=== PATIENT | male | born 1955 | race Caucasian/White ===

== ENCOUNTER 2018-11-28 13:29 | Outpatient (CLI) | payer OTHER ==
[~2018-11-28] VITALS: Ht 182.9 cm; Wt 81.6 kg
[2018-11-28 14:00] VITALS: BP 99/52
--- NOTE | 2018-11-28 21:00 | Consultation ---
DATE OF CONSULTATION: 11/28/2018 GASTROENTEROLOGY CONSULTATION CONSULTING PHYSICIAN: Gilbert Cesar M.D. CHIEF COMPLAINT: Rectal bleeding. HISTORY OF PRESENT ILLNESS: This is a very pleasant 63-year-old male with past medical history of CVA, history of brain tumor status post surgery, history of seizures, who had presented with complaint of two months of rectal bleeding and GERD. PAST SURGICAL HISTORY: Brain surgery. MEDICATIONS: Please see medication reconciliation list. FAMILY HISTORY: No family history of GI malignancies. SOCIAL HISTORY: The patient does not have history of tobacco, alcohol, or IV drug abuse. ALLERGIES: No known drug allergies. REVIEW OF SYSTEMS: Limited. PHYSICAL EXAMINATION: VITAL SIGNS: Temperature 97, blood pressure is 99/52, pulse , respirations 20. HEENT: Normocephalic and atraumatic. Sclerae anicteric. NECK: Supple. No evidence of obvious lymphadenopathy. CARDIOVASCULAR: Regular rate and rhythm. Plus S1 and S2. No obvious murmur. LUNGS: Clear to auscultation bilaterally. ABDOMEN: Positive bowel sounds. Soft and nontender. No rebound. No guarding. No peritoneal sign. EXTREMITIES: No cyanosis, no clubbing, no edema. ASSESSMENT AND PLAN: This is a 63-year-old male with rectal bleeding. No prior history of endoscopy nor colonoscopy. Also, the mentions that the patient has a lot of GERD. Plan to obtain authorization for EGD and colonoscopy. Procedure was explained to the patient and his and the prep was given, pending authorization. Gilbert Cesar M.D. DR: GARCIA JOB#: [id number] CC:
[2018-11-29] MEDS ORDERED: UNOBMED (17:12)
[2018-11-29] MEDS ORDERED: KEPPRA500 M4 ORAL (17:12)
== END 2018-11-28 15:29 | disposition home or self-care (01) ==
LOC: PAN 13:29
DX: K62.5 Hemorrhage of anus and rectum (principal); Z86.73 Personal history of transient ischemic attack (TIA), and cerebral infarction without residual deficits; G40.909 Epilepsy, unspecified, not intractable, without status epilepticus; K21.9 Gastro-esophageal reflux disease without esophagitis
CPT/HCPCS: 99202

== ENCOUNTER 2019-01-24 13:24 | Outpatient (CLI) | payer OTHER ==
[~2019-01-24 13:24] MED LIST: KEPPRA500 M4 ORAL; UNOBMED
--- NOTE | 2019-01-24 14:29 | General Progress Note ---
Assessment/Plan Problem List: (1) Constipation ICD Codes: K59.00 - Constipation, unspecified SNOMED: 39042617 (2) Gastritis ICD Codes: K29.70 - Gastritis, unspecified, without bleeding SNOMED: 6308782 Assessment/Plan: treat for HP RTC 3 months linzess anusol HC Sitz bath Subjective ROS Limited/Unobtainable: Yes Allergies: Coded Allergies: No Known Allergies (Unverified , 11/29/18) Objective General Appearance: alert EENT: normal ENT inspection Neck: supple Cardiovascular: normal rate Respiratory/Chest: lungs clear Abdomen: normal bowel sounds, non tender, soft Extremities: non-tender Gilbert Cesar MD Jan 24, 2019 14:29
== END 2019-01-24 15:24 | disposition home or self-care (01) ==
LOC: PAN 13:24
DX: K59.00 Constipation, unspecified (principal); K29.70 Gastritis, unspecified, without bleeding
CPT/HCPCS: 99212